=== PATIENT | male | born 1985 | race Hispanic/Latino ===

== ENCOUNTER 2018-01-16 11:40 | Emergency (ER) | payer OTHER ==
[2018-01-16] MEDS ORDERED: TRAMADOL HCL 50 MG TAB ONE (11:50)
--- NOTE | 2018-01-16 13:44 | ER ---
Nurse's Notes [facility] Name: Josse Brito Age: 32 yrs Sex: Male : 1985 Arrival Date: 01/16/2018 Time: 11:44 Bed 10 Private MD: None, None Diagnosis: Strain of muscle, fascia and tendon of left hip Presentation: 01/16 11:50 Presenting complaint: Patient states: Back Sx in May, reports leg pain that began a sg few days ago, denies trauma/injury to the leg. Transition of care: patient was not received from another setting of care. Onset of symptoms was January 16, 2018. Risk Assessment: Do you want to hurt yourself or someone else? Patient reports no desire to harm self or others. Initial Sepsis Screen: Does the patient meet any 2 criteria? No. Patient's initial sepsis screen is negative. Does the patient have a suspected source of infection? No. Patient's initial sepsis screen is negative. Care prior to arrival: None. 11:50 Method Of Arrival: Ambulatory sg 11:50 Acuity: DELFINA 4 sg 11:59 Care prior to arrival: pt reports taking a [place] and Muscle relaxer [employer] REPRESENTATIVE at 1000, " a sg little relief, but not much.". Triage Assessment: 14:00 General: Appears in no apparent distress. iw 14:00 General: Behavior is calm, cooperative. iw Historical: - Allergies: 11:50 No Known Allergies; sg - Home Meds: 11:50 None [Active]; sg - PMHx: 11:50 Back pain; sg - PSHx: 11:50 Back Sx; sg - Immunization history:: Adult Immunizations up to date. - Social history:: Smoking status: Patient/guardian denies using tobacco. - Ebola Screening: : Patient negative for fever greater than or equal to 101.5 degrees Fahrenheit, and additional compatible Ebola Virus Disease symptoms Patient denies exposure to infectious person Patient denies travel to an Ebola-affected area in the 21 days before illness onset No symptoms or risks identified at this time. - Family history:: pertinent for. - Hospitalizations: : No recent hospitalization is reported. - History obtained from: . Screenin:00 Abuse screen: Denies threats or abuse. Denies injuries from another. Nutritional iw screening: No deficits noted. Tuberculosis screening: No symptoms or risk factors identified. Fall Risk None identified. Assessment: 13:30 General: Appears in no apparent distress. comfortable, Behavior is calm, cooperative. iw Pain: Complains of pain in pelvis and left hip. Neuro: Level of Consciousness is awake, alert, obeys commands, Oriented to person, place, time, situation, Moves all extremities. Full function. Cardiovascular: Capillary refill Patient's skin is warm and dry. Respiratory: Airway is patent. Derm: Skin is pink, warm \\T\\ dry. normal. Musculoskeletal: Reports pain in left hip and pelvis. Vital Signs: 11:59 BP 123 / 82; Pulse 50; Resp 14; Temp 97.6; Pulse Ox 100% on R/A; Weight 63.5 kg (R); sg Pain 7/10; ED Course: 11:44 Patient arrived in ED. mr 11:45 None, None is Private Physician. mr 11:51 Triage completed. sg 11:51 Arm band placed on. sg 11:59 Talya Hawkins FNP is [facility] kav 11:59 Dov Desouza MD is Attending Physician. kav 12:47 Chloe Jackson, RN is Primary Nurse. iw 13:50 Patient has correct armband on for positive identification. iw 14:00 No provider procedures requiring assistance completed. Patient did not have IV access iw during this emergency room visit. Administered Medications: 12:51 Drug: Robaxin 750 mg Route: PO; iw 13:45 Follow up: Response: No adverse reaction; Pain is decreased iw Outcome: 13:43 Discharge ordered by . kav 14:00 Discharged to home ambulatory, with family. iw 14:00 Condition: good 14:00 Discharge instructions given to patient, family, Instructed on discharge instructions, follow up and referral plans. medication usage, Demonstrated understanding of instructions, follow-up care, medications, Prescriptions given X 1. 14:03 Patient left the ED. iw Signatures: Khari Tafoya RN RN Talya Hawkins FNP PRODUCTION SUPPORT MANAGERCherelle Boucher Chloe Jackson, NEFTALY RN iw
--- NOTE | 2018-01-16 13:44 | EDPHYS ---
Physician Documentation [facility] Name: Josse Brito Age: 32 yrs Sex: Male : 1985 Arrival Date: 01/16/2018 Time: 11:44 Bed 10 Private MD: None, None ED Physician Dov Desouza HPI: 01/16 13:26 This 32 yrs old Male presents to ER via Ambulatory with complaints of Leg Pain.kav 13:26 The patient presents with pain. The complaints affect the left hip. Context: The kav problem was sustained at home. Onset: The symptoms/episode began/occurred acutely. Modifying factors: The symptoms are alleviated by elevating leg, working out at gym on 01/15/18. Associated signs and symptoms:. Severity of symptoms: At their worst the symptoms were moderate, just prior to arrival. The patient has experienced a previous episode, approximately 6 months ago, and the symptoms today are exactly the same. The patient has not recently seen a physician. patient reports repair of ruptured disc approximately 6 months ago. He reports that the symptoms today are exactly the same. Historical: - Allergies: 11:50 No Known Allergies; sg - Home Meds: 11:50 None [Active]; sg - PMHx: 11:50 Back pain; sg - PSHx: 11:50 Back Sx; sg - Immunization history:: Adult Immunizations up to date. - Social history:: Smoking status: Patient/guardian denies using tobacco. - Ebola Screening: : Patient negative for fever greater than or equal to 101.5 degrees Fahrenheit, and additional compatible Ebola Virus Disease symptoms Patient denies exposure to infectious person Patient denies travel to an Ebola-affected area in the 21 days before illness onset No symptoms or risks identified at this time. - Family history:: pertinent for. - Hospitalizations: : No recent hospitalization is reported. - History obtained from: . ROS: 13:37 Constitutional: Negative for fever, chills, and weight loss, Eyes: Negative for injury, kav pain, redness, and discharge, ENT: Negative for injury, pain, and discharge, Neck: Negative for injury, pain, and swelling, Cardiovascular: Negative for chest pain, palpitations, and edema, Respiratory: Negative for shortness of breath, cough, wheezing, and pleuritic chest pain, Abdomen/GI: Negative for abdominal pain, nausea, vomiting, diarrhea, and constipation, Back: Negative for injury and pain, : Negative for injury, bleeding, discharge, and swelling, Skin: Negative for injury, rash, and discoloration, Neuro: Negative for headache, weakness, numbness, tingling, and seizure, Psych: Negative for depression, anxiety, suicide ideation, homicidal ideation, and hallucinations, Allergy/Immunology: Negative for hives, rash, and allergies, Endocrine: Negative for neck swelling, polydipsia, polyuria, polyphagia, and marked weight changes, Hematologic/Lymphatic: Negative for swollen nodes, abnormal bleeding, and unusual bruising. 13:37 MS/extremity: Positive for pain, of the left hip. Exam: 13:37 Constitutional: This is a well developed, well nourished patient who is awake, alert, kav and in no acute distress. Head/Face: Normocephalic, atraumatic. Eyes: Pupils equal round and reactive to light, extra-ocular motions intact. Lids and lashes normal. Conjunctiva and sclera are non-icteric and not injected. Cornea within normal limits. Periorbital areas with no swelling, redness, or edema. ENT: Nares patent. No nasal discharge, no septal abnormalities noted. Tympanic membranes are normal and external auditory canals are clear. Oropharynx with no redness, swelling, or masses, exudates, or evidence of obstruction, uvula midline. Mucous membranes moist. Neck: Trachea midline, no thyromegaly or masses palpated, and no cervical lymphadenopathy. Supple, full range of motion without nuchal rigidity, or vertebral point tenderness. No Meningismus. Chest/axilla: Normal chest wall appearance and motion. Nontender with no deformity. No lesions are appreciated. Cardiovascular: Regular rate and rhythm with a normal S1 and S2. No gallops, murmurs, or rubs. Normal PMI, no JVD. No pulse deficits. Respiratory: Lungs have equal breath sounds bilaterally, clear to auscultation and percussion. No rales, rhonchi or wheezes noted. No increased work of breathing, no retractions or nasal flaring. Abdomen/GI: Soft, non-tender, with normal bowel sounds. No distension or tympany. No guarding or rebound. No evidence of tenderness throughout. Back: No spinal tenderness. No costovertebral tenderness. Full range of motion. Skin: Warm, dry with normal turgor. Normal color with no rashes, no lesions, and no evidence of cellulitis. Neuro: Awake and alert, GCS 15, oriented to person, place, time, and situation. Cranial nerves II-XII grossly intact. Motor strength 5/5 in all extremities. Sensory grossly intact. Cerebellar exam normal. Normal gait. Psych: Awake, alert, with orientation to person, place and time. Behavior, mood, and affect are within normal limits. 13:37 Musculoskeletal/extremity: Extremities: noted in the left hip: ROM: limited active range of motion, in the left hip, Circulation is intact in all extremities. the left hip Joints: the left hip displays Weight bearing: can bear weight with assistance only, uses crutch, Tendon exam: specific tendon testing normal through active and passive range of motion Vital Signs: 11:59 BP 123 / 82; Pulse 50; Resp 14; Temp 97.6; Pulse Ox 100% on R/A; Weight 63.5 kg (R); sg Pain 7/10; MDM: 11:59 Medical screening is not applicable. kav 13:37 Differential diagnosis: dislocation, tendonitis. Data reviewed: vital signs, nurses kav notes. Administered Medications: 12:51 Drug: Robaxin 750 mg Route: PO; iw 13:45 Follow up: Response: No adverse reaction; Pain is decreased iw Disposition: 01/16/18 13:43 Discharged to Home. Impression: Strain of muscle, fascia and tendon of left hip. - Condition is Stable. - Discharge Instructions: Muscle Strain, [id number], Gluteal Strain. - Prescriptions for Robaxin 500 mg Oral Tablet - take 2 tablet by ORAL route every 6 hours As needed; 40 tablet. - Work release form, Medication Reconciliation Form, Thank You Letter, Antibiotic Education, Prescription Opioid Use form. - Follow up: Private Physician; When: 2 - 3 days; Reason: Recheck today's complaints, Continuance of care, Re-evaluation by your physician. - Problem is new. - Symptoms have improved. Addendum: 01/18/2018 08:05 Co-signature as Attending Physician, Dov Desouza MD I agree with the assessment and w a plan of care. Signatures: Khari Tafoya RN RN sg Talya Hawkins FNP PHOTO CHECKER AND ASSEMBLER kav Chloe Jackson RN RN iw [place], William, MD MD wa Corrections: (The following items were deleted from the chart) 01/16 14:03 13:43 01/16/2018 13:43 Discharged to Home. Impression: Strain of muscle, fascia and iw tendon of left hip. Condition is Stable. Forms are Medication Reconciliation Form, Thank You Letter, Antibiotic Education, Prescription Opioid Use. Follow up: Private Physician; When: 2 - 3 days; Reason: Recheck today's complaints, Continuance of care, Re-evaluation by your physician. Problem is new. Symptoms have improved. kav
== END 2018-01-16 14:03 | disposition home or self-care (01) ==
LOC: ER 11:40
DX: S76.012A Strain of muscle, fascia and tendon of left hip, initial encounter (principal); X58.XXXA Exposure to other specified factors, initial encounter; Y93.89 Activity, other specified; Y92.009 Unspecified place in unspecified non-institutional (private) residence as the place of occurrence of the external cause
CPT/HCPCS: 99283